=== PATIENT | female | born 1990 | race Caucasian/White ===

== ENCOUNTER 2018-11-24 23:16 | Emergency (ER) | payer MEDICAID ==
[2018-11-24] MEDS ORDERED: AZITHROMYCIN 500 MG TABLET PO ONE (23:36)
[2018-11-24] MEDS ORDERED: DIPHENHYDRAMINE HCL 25 MG CAPSULE PO ONE (23:41)
[2018-11-24] MEDS ORDERED: IBUPROFEN 600 MG TABLET PO ONE (23:41)
--- NOTE | 2018-11-24 23:43 | Emergency Department Record ---
History of Present Illness - General Chief Complaint: Headache Migraine Stated Complaint: SINUS INFECTION Time Seen by Provider: 11/24/18 23:28 Source: Patient Mode of Arrival: Ambulatory Limitations: No limitations - History of Present Illness Initial Comments: pt thinks she has a sinus infection. she has facial pain and pressure, galvin, congestion yellow. she has no fever MD Complaint: Headache Onset/Timin -: Days(s) Onset Description: Gradual Location: Facial Severity scale (1-10): 10 Quality: Aching, Throbbing Consistency: Constant Improves With: Nothing Worsens With: None Treatments Prior to Arrival: Other - Related Data Previous Rx's Medication Instructions Recorded Azithromycin [Zithromax] 250 mg PO DAILY #4 tab 11/24/18 Allergies Allergy/AdvReac Type Severity Reaction Status Date / Time amoxicillin Allergy Intermediate PT UNSURE Unverified 09/28/17 09:57 OF REACTION Travel Screening - Travel/Exposure Within Last 30 Days Have you traveled within the last 30 days?: No Review of Systems Reviewed: No additional complaints except as noted below Constitutional: Reports: As per HPI. Denies: Chills, Fever, Malaise, Night sweats, Weakness, Weight change Eyes: Reports: As per HPI. Denies: Eye discharge, Eye pain, Photophobia, Vision change ENT: Reports: As per HPI, Congestion. Denies: Dental pain, Ear pain, Epistaxis, Hearing loss, Throat pain Respiratory: Reports: As per HPI. Denies: Cough, Dyspnea, Hemoptysis, Stridor, Wheezes Cardiovascular: Reports: As per HPI. Denies: Arrhythmia, Chest pain, Dyspnea on exertion, Edema, Murmurs, Orthopnea, Palpitations, Paroxysmal nocturnal dyspnea, Rheumatic Fever, Syncope Endocrine: Reports: As per HPI. Denies: Fatigue, Heat or cold intolerance, Polydipsia, Polyuria Gastrointestinal: Reports: As per HPI. Denies: Abdominal pain, Constipation, Diarrhea, Hematemesis, Hematochezia, Melena, Nausea, Vomiting Genitourinary: Reports: As per HPI. Denies: Abnormal menses, Discharge, Dyspareunia, Dysuria, Frequency, Hematuria, Incontinence, Retention, Urgency Musculoskeletal: Reports: As per HPI. Denies: Arthralgia, Back pain, Gout, Joint swelling, Myalgia, Neck pain Skin: Reports: As per HPI. Denies: Bruising, Change in color, Change in hair/nails, Lesions, Pruritus, Rash Neurological: Reports: As per HPI. Denies: Abnormal gait, Confusion, Headache, Numbness, Paresthesias, Seizure, Tingling, Tremors, Vertigo, Weakness Psychiatric: Reports: As per HPI. Denies: Anxiety, Auditory hallucinations, Depression, Homicidal thoughts, Suicidal thoughts, Visual hallucinations Hematological/Lymphatic: Reports: As per HPI. Denies: Anemia, Blood Clots, Easy bleeding, Easy bruising, Swollen glands Past Medical History - SOCIAL HISTORY Smoking Status: Current every day smoker Alcohol Use: None Drug Use: None - RESPIRATORY Hx Respiratory Disorders: No - CARDIOVASCULAR Hx Cardio Disorders: No - NEURO Hx Neuro Disorders: No - GI Hx GI Disorders: No - Hx Genitourinary Disorders: No - ENDOCRINE Hx Endocrine Disorders: No - MUSCULOSKELETAL Hx Musculoskeletal Disorders: No - PSYCH Hx Psych Problems: No - HEMATOLOGY/ONCOLOGY Hx Hematology/Oncology Disorders: No Family Medical History Any Significant Family History?: No Physical Exam - General General Appearance: Alert, Oriented x3, Cooperative, Mild distress - Head Head exam: Normal inspection - Eye Eye exam: Normal appearance, PERRL, EOMI Pupils: Normal accommodation - ENT ENT exam: Normal exam, Mucous membranes moist, Normal external ear exam, Normal orophraynx, TM's normal bilaterally Ear exam: Normal external inspection. negative: External canal tenderness Nasal Exam: Normal inspection, Discharge, Sinus tenderness Mouth exam: Normal external inspection, Tongue normal Teeth exam: Normal inspection. negative: Dental caries Throat exam: Normal inspection. negative: Tonsillar erythema, Tonsillar exudate - Neck Neck exam: Normal inspection, Full ROM. negative: Tenderness - Respiratory Respiratory exam: Normal lung sounds bilaterally. negative: Respiratory distress - Cardiovascular Cardiovascular Exam: Regular rate, Normal rhythm, Normal heart sounds - GI/Abdominal GI/Abdominal exam: Soft, Normal bowel sounds. negative: Tenderness - Rectal Rectal exam: Deferred - exam: Deferred - Extremities Extremities exam: Normal inspection, Full ROM, Normal capillary refill. negative: Tenderness - Back Back exam: Reports: Normal inspection, Full ROM. Denies: Muscle spasm, Rash noted, Tenderness - Neurological Neurological exam: Alert, CN II-XII intact, Normal gait, Oriented X3 - Psychiatric Psychiatric exam: Normal affect, Normal mood - Skin Skin exam: Dry, Intact, Normal color, Warm Course Vital Signs 11/24/18 23:25 Temperature 98.6 F Pulse Rate [ 78 Left] Respiratory 16 Rate Blood Pressure 136/84 [Left Arm] Pulse Ox 99 Disposition Disposition: Discharge Clinical Impression: Sinusitis Qualifiers: Sinusitis location: maxillary Chronicity: acute Recurrence: recurrent Qualified Code(s): J01.01 - Acute recurrent maxillary sinusitis Disposition: Home, Self-Care Condition: (1) Good Instructions: Sinusitis (ED), Warm Compress or Soak (ED) Additional Instructions: follow up with family doctor. return sooner if worse. take dayquil and nyquil. Prescriptions: Azithromycin [Zithromax] 250 mg PO DAILY #4 tab Forms: Patient Portal Access, Return to Work/School Quality - Quality Measures Quality Measures: Adult Sinusitis (>18yr) - Adult Sinusitis: Abx Overuse Quality Measure: Measure #331: Adult Sinusitis Abx Overuse Onset of symptoms over 10 days: No Presumed Bacterial: Yes Antibiotic Prescribed: Yes Adult Sinusitis: Antibiotic Within 10 Days of Symptoms: Medical Reason for Rx Within 10 Days [G9505] Reason for Prescription: Presumed Bacterial - Adult Sinusitis: Bacterial w/Abx Quality Measure: Measure #332: Adult Bacterial Sinusitis Correct Abx Use Adult Sinusitis: Appropriate Antibiotic: NOT Prescribed w/Documented Reason [G9313] Reason for Not Prescribing Amoxicillin: allergic to - Adult Sinusitis: CT Use Quality Measure: Measure #333: Adult Sinusitis Adult Sinusitis: CT for Acute Sinusitis: < CT NOT ordered or received within 28 Days > [G9350] - Blood Pressure Screening Does Patient Have Any of the Following: No Blood Pressure Classification: Pre-Hypertensive BP Reading Systolic Measurement: 136 Diastolic Measurement: 84 Screening for High Blood Pressure: < Pre-Hypertensive BP, F/U Documented > [G8950] Pre-Hypertensive Follow-up Interventions: Follow-up with rescreen every year.
== END 2018-11-25 | disposition home or self-care (01) ==
LOC: ER 23:16
DX: J01.01 Acute recurrent maxillary sinusitis (principal); R51 Headache; F17.210 Nicotine dependence, cigarettes, uncomplicated
CPT/HCPCS: 99282

== ENCOUNTER 2019-04-01 09:02 | Emergency (ER) | payer MEDICAID ==
[2019-04-01] MEDS ORDERED: KETOROLAC 30 MG/ML VIAL IM ONE (09:17)
--- NOTE | 2019-04-01 09:25 | Emergency Department Record ---
History of Present Illness - General Chief complaint: Extremity Problem Stated complaint: BOTH ARMS SWOLLEN AND PAINFUL Time Seen by Provider: 04/01/19 09:10 Source: Patient Mode of Arrival: Ambulatory Limitations: No limitations - History of Present Illness Initial comments: The patient is here due to R and L arm pain for a week. The pain is mainly in t he anterior wrists and radiates to the elbows. The patient states the pain seems to be worse at night with numbness to her hands also and she has had to wake up and shake her hands for improvement in the numbness. She denies any trauma or injury and states she has had a hx of carpal tunnel in the past when she was but it had not been a problem for some time. The patient works at [employer] and uses her hand a lot at work with lifting. MD Complaint: Extremity pain Onset/Timin -: Week(s) Location: Left, Right, Forearm, Hand Quality: Aching, Stabbing Consistency: Constant Improves with: Nothing Worsens with: Nothing Associated Symptoms: Denies other symptoms - Related Data Previous Rx's Medication Instructions Recorded Naproxen [Naprosyn] 500 mg PO BID #14 tablet. 04/01/19 Allergies Allergy/AdvReac Type Severity Reaction Status Date / Time amoxicillin Allergy Intermediate PT UNSURE Verified 04/01/19 09:09 OF REACTION Travel Screening - Travel/Exposure Within Last 30 Days Have you traveled within the last 30 days?: No Review of Systems Constitutional: Denies: Chills, Fever Eyes: Denies: Eye discharge ENT: Denies: Congestion Respiratory: Denies: Cough Past Medical History - SOCIAL HISTORY Smoking Status: Current every day smoker Alcohol Use: None Drug Use: None - RESPIRATORY Hx Respiratory Disorders: No - CARDIOVASCULAR Hx Cardio Disorders: No - NEURO Hx Neuro Disorders: No - GI Hx GI Disorders: No - Hx Genitourinary Disorders: No - ENDOCRINE Hx Endocrine Disorders: No - MUSCULOSKELETAL Hx Musculoskeletal Disorders: No - PSYCH Hx Psych Problems: No - HEMATOLOGY/ONCOLOGY Hx Hematology/Oncology Disorders: No Family Medical History Any Significant Family History?: No Physical Exam - General General Appearance: Alert, Oriented x3, Cooperative, No acute distress - Head Head exam: Atraumatic, Normocephalic, Normal inspection - Eye Eye exam: Normal appearance, PERRL - Neck Neck exam: Normal inspection, Full ROM. negative: Tenderness - Respiratory Respiratory exam: Normal lung sounds bilaterally. negative: Respiratory distress - Cardiovascular Cardiovascular Exam: Regular rate, Normal rhythm, Normal heart sounds - Extremities Extremities exam: Normal inspection (The hands and wrists appear normal with no bruising or swelling or erythema.), Full ROM, Normal capillary refill, Tenderness (There is reproducible tenderness to both anterior wrists bilaterally R>L. ), Other (The hands are NVI with normal hand grasp with pain. There is mild decreased sensation to the palms R>L over the thumb and 2nd and 3rd fingers mildly.). negative: Calf tenderness, Joint swelling, Pedal edema - Back Back exam: Reports: Normal inspection - Neurological Neurological exam: Alert, Normal gait, Oriented X3. negative: Abnormal gait, Altered, Motor sensory deficit - Psychiatric Psychiatric exam: negative: Anxious - Skin Skin exam: negative: Rash Course Vital Signs 04/01/19 09:06 Temperature 98.0 F Pulse Rate 89 Respiratory 18 Rate Blood Pressure 139/75 Pulse Ox 99 - Reevaluation(s) Reevaluation #1: The patient is doing better at this time. Her pain and numbness are much improved. I did discuss the need for F/U and to have the elevated liver enzymes rechecked by her PCP. 04/01/19 10:13 Medical Decision Making - Lab Data Result diagrams: 04/01/19 09:22 04/01/19 09:22 Disposition Disposition: Discharge Clinical Impression: Wrist pain, acute Qualifiers: Laterality: unspecified laterality Qualified Code(s): M25.539 - Pain in unspecified wrist Disposition: Home, Self-Care Condition: (2) Stable Instructions: Paresthesia (ED) Additional Instructions: Please wear the R wrist splint for a week and ice and elevate the wrists the next 3 days. Please use the Naprosyn for pain and please see your family doctor on Wednesday for recheck and for a hand surgeon referral. Return to the ER for any worsening symptoms. Please also see your family doctor to have your liver enzymes rechecked due to the mild elevation present today. Prescriptions: Naproxen [Naprosyn] 500 mg PO BID #14 tablet.dr Forms: Patient Portal Access Time of Disposition: 10:10 Quality - Quality Measures Quality Measures: N/A - Blood Pressure Screening View Details: Yes Does Patient Have Any of the Following: No Blood Pressure Classification: Pre-Hypertensive BP Reading Systolic Measurement: 139 Diastolic Measurement: 75 Screening for High Blood Pressure: < Pre-Hypertensive BP, F/U Documented > [G8950] Pre-Hypertensive Follow-up Interventions: Referral to alternative/primary care provider.
[2019-04-01 09:29] LABS: ABSOLUTE NEUTROPHIL COUNT 4.39; BASO % 0.4 % (0-6); EOS % 2.6 % (0-6); GRAN % 56.9 % (47-80); HEMATOCRIT 40.4 % (35.0-47.0); HEMOGLOBIN 13.1 gm/dl (11.6-16.0); LYMPH % 30.2 % (16-45); MEAN CELL VOLUME 90.6 fl (81-97); MEAN CORPUSCULAR HEMOGLOBIN 29.4 pg (27-33); MEAN CORPUSCULAR HGB CONC 32.4 g/dl (32-36); MEAN PLATELET VOLUME 9.8 fl (7.4-10.4); MONO % 9.9 % (0-9); PLATELET COUNT 323 K/uL (130-400); RED BLOOD COUNT 4.46 M/uL (3.80-5.40); RED CELL DISTRIBUTION WIDTH 13.6 % (11.5-14.5); WHITE BLOOD COUNT W/O DIFF 7.7 K/uL (4.2-12.2)
[2019-04-01 10:04] LABS: BLOOD UREA NITROGEN 12 mg/dL (6-20); CREATININE 0.7 mg/dL (0.5-0.9); EST GLOMERULAR FILTRATION RATE > 60 mL/min
[2019-04-01 10:05] LABS: TOTAL PROTEIN 7.6 g/dL (6.6-8.7)
[2019-04-01 10:07] LABS: GLUCOSE,RANDOM 101 mg/dL (74-109)
[2019-04-01 10:09] LABS: ALT/SGPT 130 U/L (<33); AST/SGOT 57 U/L (10.0-35.0)
[2019-04-01 10:10] LABS: ALB/GLOB RATIO 1.7 (1.1-1.8); ALBUMIN 4.8 g/dL (4.0-5.0); ALKALINE PHOSPHATASE 61 U/L (35-104)
== END 2019-04-01 10:17 | disposition home or self-care (01) ==
LOC: ER 09:02
DX: M25.532 Pain in left wrist (principal); M25.531 Pain in right wrist; F17.210 Nicotine dependence, cigarettes, uncomplicated; R20.2 Paresthesia of skin
CPT/HCPCS: 99284 ×2; 96372; 85025; 80053; J1885

== ENCOUNTER 2019-08-02 14:03 | Emergency (ER) | payer MEDICAID ==
[2019-08-02] MEDS ORDERED: 0.9 % SODIUM CHLORIDE 1,000 ML BAG IV ONE (15:17)
[2019-08-02] MEDS ORDERED: KETOROLAC 30 MG/ML VIAL IVP ONE (15:17)
--- NOTE | 2019-08-02 15:23 | Emergency Department Record ---
History of Present Illness - General Chief complaint: Flank Pain Stated complaint: RT SIDE/BACK PAIN W/ RED SPOTS Time Seen by Provider: 08/02/19 15:14 Source: Patient, RN notes reviewed Mode of Arrival: Ambulatory - History of Present Illness Initial comments: right flank pain and right upper quad abd pain and has been present for 2 days and she recently had an insurance physical and told her liver enzymes were elevated. patient denies problems with eating and no vomiting or diarrhea Onset/Timin -: Days(s) Severity scale (1-10): 8 Quality: Sharp, Stabbing Consistency: Intermittent Improves with: None Worsens with: Movement, Other LMP Date: 07/31/19 Gestational Age (wks) based on LMP: 0 - Related Data Previous Rx's Medication Instructions Recorded Naproxen [Naprosyn] 500 mg PO BID #14 tablet. 04/01/19 Naproxen [Naprosyn] 500 mg PO Q12H #20 tab. 08/02/19 Sulfamethoxazole/Trimethoprim 1 each PO BID #20 tablet 08/02/19 [Bactrim Ds Tablet] Allergies Allergy/AdvReac Type Severity Reaction Status Date / Time amoxicillin Allergy Intermediate PT UNSURE Verified 06/08/19 12:05 OF REACTION amoxicillin trihydrate AdvReac Mild YEAST Unverified 06/08/19 12:05 [From Amoxil] INFECTION Travel/Exposure Screening - Travel/Exposure Within Last 30 Days Have you traveled within the last 30 days?: No - Travel/Exposure Within Last Year Have you traveled outside the [place] in the last year?: No - Additonal Travel/Exposure Details Have you been exposed to anyone with a communicable illness?: No - Travel Symptoms Symptom Screening: Stomach Pain Review of Systems Reviewed: No additional complaints except as noted below Constitutional: Reports: As per HPI. Denies: Chills, Fever, Malaise, Night sweats, Weakness, Weight change Eyes: Reports: As per HPI. Denies: Eye discharge, Eye pain, Photophobia, Vision change ENT: Reports: As per HPI. Denies: Congestion, Dental pain, Ear pain, Epistaxis, Hearing loss, Throat pain Respiratory: Reports: As per HPI. Denies: Cough, Dyspnea, Hemoptysis, Stridor, Wheezes Cardiovascular: Reports: As per HPI. Denies: Arrhythmia, Chest pain, Dyspnea on exertion, Edema, Murmurs, Orthopnea, Palpitations, Paroxysmal nocturnal dyspnea, Rheumatic Fever, Syncope Endocrine: Reports: As per HPI. Denies: Fatigue, Heat or cold intolerance, Polydipsia, Polyuria Gastrointestinal: Reports: As per HPI. Denies: Abdominal pain, Constipation, Diarrhea, Hematemesis, Hematochezia, Melena, Nausea, Vomiting Genitourinary: Reports: As per HPI. Denies: Abnormal menses, Discharge, Dyspareunia, Dysuria, Frequency, Hematuria, Incontinence, Retention, Urgency Musculoskeletal: Reports: As per HPI, Other (right flank pain). Denies: Arthralgia, Back pain, Gout, Joint swelling, Myalgia, Neck pain Skin: Reports: As per HPI. Denies: Bruising, Change in color, Change in hair/nails, Lesions, Pruritus, Rash Neurological: Reports: As per HPI. Denies: Abnormal gait, Confusion, Headache, Numbness, Paresthesias, Seizure, Tingling, Tremors, Vertigo, Weakness Psychiatric: Reports: As per HPI. Denies: Anxiety, Auditory hallucinations, Depression, Homicidal thoughts, Suicidal thoughts, Visual hallucinations Hematological/Lymphatic: Reports: As per HPI. Denies: Anemia, Blood Clots, Easy bleeding, Easy bruising, Swollen glands Past Medical History - SOCIAL HISTORY Smoking Status: Light tobacco smoker (<10/day) Alcohol Use: Occasional Drug Use: Occasional Drug Use Detail:: Marijuana - RESPIRATORY Hx Respiratory Disorders: No - CARDIOVASCULAR Hx Cardio Disorders: No - NEURO Hx Neuro Disorders: No - GI Hx GI Disorders: No - Hx Genitourinary Disorders: No - ENDOCRINE Hx Endocrine Disorders: No - MUSCULOSKELETAL Hx Musculoskeletal Disorders: No - PSYCH Hx Psych Problems: No - HEMATOLOGY/ONCOLOGY Hx Hematology/Oncology Disorders: No Family Medical History Any Significant Family History?: No Physical Exam - General General Appearance: Alert, Oriented x3, Cooperative, Mild distress - Head Head exam: Normal inspection - Eye Eye exam: Normal appearance, PERRL Pupils: Normal accommodation - ENT ENT exam: Normal exam, Mucous membranes moist, Normal external ear exam, Normal orophraynx, TM's normal bilaterally Ear exam: Normal external inspection. negative: External canal tenderness Nasal Exam: Normal inspection. negative: Discharge, Sinus tenderness Mouth exam: Normal external inspection, Tongue normal Teeth exam: Normal inspection. negative: Dental caries Throat exam: Normal inspection. negative: Tonsillar erythema, Tonsillar exudate - Neck Neck exam: Normal inspection, Full ROM. negative: Tenderness - Respiratory Respiratory exam: Normal lung sounds bilaterally. negative: Respiratory distress - Cardiovascular Cardiovascular Exam: Regular rate, Normal rhythm, Normal heart sounds - GI/Abdominal GI/Abdominal exam: Soft, Normal bowel sounds. negative: Tenderness - Rectal Rectal exam: Deferred - exam: Deferred - Extremities Extremities exam: Normal inspection, Full ROM, Normal capillary refill. ne gative: Tenderness - Back Back exam: Reports: Normal inspection, Full ROM. Denies: Muscle spasm, Rash noted, Tenderness - Neurological Neurological exam: Alert, Normal gait, Oriented X3, Reflexes normal - Psychiatric Psychiatric exam: Normal affect, Normal mood - Skin Skin exam: Dry, Intact, Normal color, Warm Course Vital Signs 08/02/19 14:22 Temperature 98.4 F Pulse Rate [ 80 Pulse Ox Probe] Respiratory 16 Rate Blood Pressure 120/78 [Left Arm] Pulse Ox 99 - Reevaluation(s) Reevaluation #1: 08/02/19 17:41 patient is feeling better Medical Decision Making - Data Complexity MDM Data: Labs Ordered and/or Reviewed (urine positive for nitrates), X-Ray Ordered and/or Reviewed (CT neg with a nodule in the chest ground glass left base of lung) - Lab Data Result diagrams: 08/02/19 15:28 08/02/19 15:28 Disposition Clinical Impression: Thoracic myofascial strain Qualifiers: Encounter type: initial encounter Qualified Code(s): S29.019A - Strain of muscle and tendon of unspecified wall of thorax, initial encounter UTI (urinary tract infection) Qualifiers: Urinary tract infection type: acute cystitis Hematuria presence: without hematuria Qualified Code(s): N30.00 - Acute cystitis without hematuria Disposition: Home, Self-Care Condition: (1) Good Instructions: Musculoskeletal Pain (ED), Urinary Tract Infection in Women (ED) Additional Instructions: follow up with family Dr in one week and tell them about the CT scan abnormality ,please give a copy of the CT scan to the patient stop smoking naprosyn twice a day for pain bactrim twice aday for UTI Prescriptions: Sulfamethoxazole/Trimethoprim [Bactrim Ds Tablet] 1 each PO BID #20 tablet Naproxen [Naprosyn] 500 mg PO Q12H #20 tab.dr Forms: Patient Portal Access Quality - Quality Measures Quality Measures: N/A - Blood Pressure Screening Does Patient Have Any of the Following: No Blood Pressure Classification: Pre-Hypertensive BP Reading Systolic Measurement: 120 Diastolic Measurement: 71 Screening for High Blood Pressure: < Pre-Hypertensive BP, F/U Documented > [G8950] Pre-Hypertensive Follow-up Interventions: Referral to alternative/primary care provider. First Hypertensive Follow-up Interventions: Referral to alternative/primary care provider.
[2019-08-02 15:35] LABS: ABSOLUTE NEUTROPHIL COUNT 4.47; BASO % 0.2 % (0-6); EOS % 1.7 % (0-6); GRAN % 50.2 % (47-80); HEMATOCRIT 38.3 % (35.0-47.0); HEMOGLOBIN 12.1 gm/dl (11.6-16.0); LYMPH % 37.5 % (16-45); MEAN CELL VOLUME 88.9 fl (81-97); MEAN CORPUSCULAR HEMOGLOBIN 28.1 pg (27-33); MEAN CORPUSCULAR HGB CONC 31.6 g/dl (32-36); MEAN PLATELET VOLUME 9.3 fl (7.4-10.4); MONO % 10.4 % (0-9); PLATELET COUNT 401 K/uL (130-400); RED BLOOD COUNT 4.31 M/uL (3.80-5.40); RED CELL DISTRIBUTION WIDTH 14.2 % (11.5-14.5); URINE APPEARANCE CLEAR; URINE BILIRUBIN NEGATIVE (NEGATIVE); URINE BLOOD NEGATIVE (NEGATIVE); URINE COLOR YELLOW; URINE GLUCOSE (UA) NEGATIVE (NEGATIVE); URINE KETONE NEGATIVE (NEGATIVE); URINE LEUKOCYTE ESTERASE NEGATIVE (NEGATIVE); URINE NITRITE POSITIVE (NEGATIVE); URINE PROTEIN NEGATIVE (NEGATIVE); URINE UROBILINOGEN 0.2 E.U./dL (0.20 - 1.00); WHITE BLOOD COUNT W/O DIFF 8.9 K/uL (4.2-12.2)
[2019-08-02 15:37] LABS: HCG,QUALITATIVE URINE NEGATIVE (NEGATIVE)
[2019-08-02 15:44] LABS: BLOOD UREA NITROGEN 9 mg/dL (6-20)
[2019-08-02 15:45] LABS: BILIRUBIN,TOTAL < 0.20 mg/dL (0.2-1.0); CREATININE 0.7 mg/dL (0.5-0.9); EST GLOMERULAR FILTRATION RATE > 60 mL/min; LIPASE 52 U/L (13-60); TOTAL PROTEIN 7.9 g/dL (6.6-8.7)
[2019-08-02 15:46] LABS: URINE EPITHELIAL CELLS RARE (FEW); URINE RBC NONE SEEN (NONE SEEN); URINE WBC NONE SEEN (0-2/hpf)
[2019-08-02 15:47] LABS: GLUCOSE,RANDOM 86 mg/dL (74-109); URINE BACTERIA FEW
[2019-08-02 15:50] LABS: ALBUMIN 4.6 g/dL (4.0-5.0); ALKALINE PHOSPHATASE 61 U/L (35-104); ALT/SGPT 27 U/L (<33); AST/SGOT 17 U/L (10.0-35.0); BILIRUBIN,DIRECT < 0.2 mg/dL (0-0.3)
--- NOTE | 2019-08-02 16:58 | CT SCAN REPORT ---
EXAMINATION: CT Abdomen and Pelvis without IV Contrast EXAM DATE: 08/02/2019 4:17 PM TECHNIQUE: Standard protocol CT imaging of the abdomen and pelvis was performed without intravenous c ontrast. INDICATION: right flank pain COMPARISON: Abdominal sonogram November 18, 2016 ENCOUNTER: Not applicable CT ABDOMEN AND PELVIS FINDINGS: Lung Bases: 7 mm groundglass nodule left lung base anteriorly axial image 13. Hepatobiliary: The liver has a normal size with a smooth surface. Gallbladder is unremarkable. Pancreas: The pancreas is normal. Spleen: The spleen is not enlarged. Adrenals: The adrenal glands are normal. Kidneys, Ureters, & Bladder: Left kidney is slightly larger in size in comparison to the right kidney not significant change since previous sonogram. No hydronephrosis bilaterally. No calcified renal st ones. Both ureters have a normal course and caliber and the urinary bladder a normal morphology and u niform wall thickness. No ureteral or bladder calculi are identified. Gastrointestinal: The stomach and small bowel are normal with no obstruction or inflammation. Appendi x is normal. The large bowel is within normal limits. Reproductive Organs: Unremarkable Lymphatic System: There is no adenopathy within the abdomen or pelvis. Vasculature: Normal caliber abdominal aorta Peritoneum: No free fluid, free air, or inflammation Abdominal wall & Musculoskeletal: No suspicious bone lesions. Assessment of the solid organs, soft tissues, and vascular structures is overall limited on noncontra st imaging, IMPRESSION: No hydronephrosis bilaterally. No calcified renal or ureteral stones. Nonobstructed bowel with normal appendix No CT evidence for cholelithiasis 7 mm groundglass nodule left lung base anteriorly Follow-up should be based upon patient's risk factors in the [employer] recommendati ons. If patient is low risk, suggest follow-up in 9-12 months. Additional findings as detailed above Dictated by: Nate Verdugo MD on 08/02/2019 4:44 PM. .
== END 2019-08-02 18:12 | disposition home or self-care (01) ==
LOC: ER 14:03
DX: S29.019A Strain of muscle and tendon of unspecified wall of thorax, initial encounter (principal); N30.00 Acute cystitis without hematuria; R91.1 Solitary pulmonary nodule; R51 Headache; R10.11 Right upper quadrant pain; X58.XXXA Exposure to other specified factors, initial encounter; F17.210 Nicotine dependence, cigarettes, uncomplicated
CPT/HCPCS: 99284 ×2; 96374; 83690; 85025; 80076; 80048; 81001; 81025; 74176; J1885; J7030